=== PATIENT | female | born 2000 ===

== ENCOUNTER 2019-10-29 06:24 | Inpatient (IN) ==
[2019-10-29] MEDS ORDERED: ONDANSETRON 4 MG/2 ML VIAL IV PRN ×2 (06:33→16:13)
[2019-10-29] MEDS ORDERED: MEPERIDINE 50 MG/1 ML VIAL IV PRN (06:33)
[2019-10-29] MEDS ORDERED: BUTORPHANOL 2 MG/ML VIAL IV PRN (06:33)
[2019-10-29 06:59] LABS: Basophils % 0.3 % (0.0-0.8); Eosinophils # 0.1 10*3/uL (0.0-0.87); Eosinophils % 0.7 % (0.00-10.9); Hematocrit 38.5 VOL% (35.7-47.0); Hemoglobin 12.5 GM/DL (12.0-16.0); Immature Granulocytes % 1.5 %; Immature Granulocytes Absolute 0.11 #; Lymphocytes # 1.6 10*3/uL (1.4-4.0); Lymphocytes % 21.7 % (21.3-54.2); Mean Corpuscular HGB Conc 32.5 GM/DL (32-36); Mean Corpuscular Volume 97.5 FL (87-102); Mean Platelet Volume 8.8 FL (9.6-12.0); Monocytes % 8.2 % (1.7-12.7); Neutrophils % 67.6 % (38.7-73.9); Platelet Count 184 T/CUMM (130-400); Red Blood Count 3.95 MC/CUMM (3.8-5.5); Red Cell Distribution Width 13.2 % (9.3-17.3); White Blood Count 7.4 T/CUMM (4-12)
[2019-10-29] MEDS ORDERED: LACTATED RINGERS 1,000 ML IV SCH (07:00)
[2019-10-29] MEDS ORDERED: OXYTOCIN/LR 20 UNIT/1,000 ML BAG IV SCH (07:00)
[2019-10-29 07:30] LABS: Albumin 2.9 G/DL (3.4-5.0); Bilirubin,Total 0.6 MG/DL (0.2-1.0); Calcium 8.5 MG/DL (8.5-10.1); Osmolality,Calculated 271.8 MOS/KG (273-304); Total Protein 7.2 G/DL (6.4-8.3)
[2019-10-29] MEDS ORDERED: CITRIC ACID/SODIUM CITRATE 30 ML UDCUP PO ONE (08:45)
[2019-10-29] MEDS ORDERED: ePHEDrine 50 MG/ML AMP IV PRN (08:45)
[2019-10-29] MEDS ORDERED: diphenhydrAMINE 50 MG/1 ML VIAL IV PRN ×2 (08:45)
[2019-10-29] MEDS ORDERED: FAMOTIDINE 20 MG/2 ML VIAL IV ONE (08:45)
[2019-10-29] MEDS ORDERED: NALOXONE 0.4 MG/ML VIAL IV PRN (08:45)
[2019-10-29] MEDS ORDERED: LACTATED RINGERS 1,000 ML IV ONE (08:45)
[2019-10-29] MEDS ORDERED: fentaNYL 2 MCG/ROPIV 0.2% EPID 100 ML EPIDURAL SCH (09:00)
[2019-10-29 13:05] LABS: Apearance,Urine CLEAR (Clear); Bilirubin,Urine Negative (Negative); Blood, Urine Negative (Negative); Glucose,Urine (UA) Negative (Negative); Ketones,Urine Negative (Negative); Nitrite,Urine Negative (Negative); Protein,Urine Negative; RBC,Urine <1 /HPF (0-4); Squamous Epithelial Cell,Urine Occasional /HPF (0-10); Urine Color Colorless (Yellow); Urine Specific Gravity 1.005 (1.001-1.035); Urine Urobilinogen < 2.0 EU/DL (0.2-1.0); WBC,Urine 1 /HPF (0-6)
[2019-10-29] MEDS ORDERED: METHYLERGONOVINE 0.2 MG/1 ML AMP ONE (13:30)
[2019-10-29] MEDS ORDERED: miSOPROStoL 200 MCG TABLET ONE (13:30)
[2019-10-29] MEDS ORDERED: METHYLERGONOVINE 0.2 MG/1 ML AMP IM ONE (15:44)
[2019-10-29] MEDS ORDERED: BISACODYL 10 MG SUPP RECTAL PRN (16:13)
[2019-10-29] MEDS ORDERED: WITCH HAZEL PADS 100/JAR TOP PRN (16:13)
[2019-10-29] MEDS ORDERED: RHO(D) IMMUNE GLOBULIN 300 MCG SYRINGE IM ONE (16:13)
[2019-10-29] MEDS ORDERED: HYDROCORTISONE 2.5% RECTAL CREAM 30 GM TUBE TOP PRN (16:13)
[2019-10-29] MEDS ORDERED: ACETAMINOPHEN 325 MG TABLET PO PRN (16:13)
[2019-10-29] MEDS ORDERED: OXYTOCIN/LR 20 UNIT/1,000 ML BAG IV ONE (16:13)
[2019-10-29] MEDS ORDERED: oxyCODONE/ACETAMINOPHEN 5-325 MG TABLET PO PRN (16:13)
[2019-10-29] MEDS ORDERED: MEASLES/MUMPS/RUBELLA VACCINE 0.5 ML VIAL SUBCUT ONE (16:13)
[2019-10-29] MEDS ORDERED: BENZOCAINE 20%/MENTHOL 0.5% SPRAY 56 GM CAN TOP PRN (16:13)
[2019-10-29] MEDS ORDERED: LANOLIN 50% CREAM 0.3 OZ TUBE TOP PRN (16:13)
[2019-10-29] MEDS ORDERED: DIPH/TET/ACEL PERT BOOSTER VACCINE 0.5 ML VIAL IM ONE (16:13)
[2019-10-29 16:35] LABS: Cord Venous Blood HCO3 24.3 MMOL/L; Cord Venous Blood PCO2 38.9 MMHG
[2019-10-29] MEDS: IBUPROFEN 800 MG TABLET PO PRN (21:29)
[2019-10-29] MEDS: DOCUSATE SODIUM 100 MG CAPSULE PO SCH (21:29)
[2019-10-29] MEDS: TRIAMCINOLONE 0.1% CREAM 15 GM TUBE TOP SCH (21:37)
[2019-10-29] MEDS: oxyCODONE/ACETAMINOPHEN 5-325 MG TABLET PO PRN (23:26)
[2019-10-30 06:45] LABS: Basophils % 0.3 % (0.0-0.8); Eosinophils # 0.1 10*3/uL (0.0-0.87); Eosinophils % 1.1 % (0.00-10.9); Hematocrit 33.2 VOL% (35.7-47.0); Lymphocytes # 1.7 10*3/uL (1.4-4.0); Lymphocytes % 17.6 % (21.3-54.2); Mean Corpuscular HGB Conc 33.1 GM/DL (32-36); Mean Corpuscular Volume 96.8 FL (87-102); Mean Platelet Volume 9.1 FL (9.6-12.0); Monocytes % 7.9 % (1.7-12.7); Neutrophils % 72.1 % (38.7-73.9); Platelet Count 174 T/CUMM (130-400); Red Blood Count 3.43 MC/CUMM (3.8-5.5); Red Cell Distribution Width 13.3 % (9.3-17.3); White Blood Count 9.7 T/CUMM (4-12)
[2019-10-30] MEDS: DOCUSATE SODIUM 100 MG CAPSULE PO SCH ×2 (08:58→21:11)
[2019-10-30] MEDS: TRIAMCINOLONE 0.1% CREAM 15 GM TUBE TOP SCH ×2 (10:02→21:11)
[2019-10-30] MEDS: IBUPROFEN 800 MG TABLET PO PRN (15:36)
[2019-10-30] MEDS: oxyCODONE/ACETAMINOPHEN 5-325 MG TABLET PO PRN (15:36)
[2019-10-31] MEDS: IBUPROFEN 800 MG TABLET PO PRN ×2 (00:52→11:44)
[2019-10-31] MEDS: oxyCODONE/ACETAMINOPHEN 5-325 MG TABLET PO PRN ×2 (00:52→11:44)
[2019-10-31] MEDS: DOCUSATE SODIUM 100 MG CAPSULE PO SCH (09:35)
[2019-10-31 11:27] VITALS: BP 118/79
== END 2019-10-31 14:15 | disposition home or self-care (01) | DRG 807 ==
LOC: N.LDOUT 06:24 → N.LD 06:26 → N.OB 20:45
PROVIDERS: ADMIT Obstetrics & Gynecology; ATTEND Obstetrics & Gynecology

== ENCOUNTER 2021-12-07 11:27 | Inpatient (IN) ==
[2021-12-07] MEDS ORDERED: METHYLERGONOVINE 0.2 MG/1 ML AMP IM PRN (11:51)
[2021-12-07] MEDS ORDERED: ONDANSETRON 4 MG/2 ML VIAL IV PRN (11:51)
[2021-12-07] MEDS ORDERED: TRANEXAMIC ACID 1,000 MG in SODIUM CHLORIDE 0.9% 100 ML IV PRN ×2 (11:51→12:30)
[2021-12-07] MEDS ORDERED: OXYTOCIN/LR 20 UNIT/1,000 ML BAG IV ONE ×2 (11:51→22:20)
[2021-12-07] MEDS ORDERED: miSOPROStoL 200 MCG TABLET RECTAL PRN (11:51)
[2021-12-07] MEDS ORDERED: CARBOPROST TROMETHAMINE 250 MCG/ML AMP IM PRN (11:51)
[2021-12-07] MEDS ORDERED: CITRIC ACID/SODIUM CITRATE 30 ML UDCUP PO ONE (11:55)
[2021-12-07] MEDS ORDERED: LACTATED RINGERS 1,000 ML IV ONE (11:55)
[2021-12-07] MEDS ORDERED: diphenhydrAMINE 50 MG/1 ML VIAL IV PRN ×2 (11:55)
[2021-12-07] MEDS ORDERED: PROMETHAZINE 25 MG/1 ML VIAL IM ONE (11:55)
[2021-12-07] MEDS ORDERED: NALOXONE 0.4 MG/ML VIAL IV PRN (11:55)
[2021-12-07] MEDS ORDERED: FAMOTIDINE 20 MG/2 ML VIAL IV ONE (11:55)
[2021-12-07] MEDS ORDERED: ePHEDrine 50 MG/ML VIAL IV PRN (11:55)
[2021-12-07] MEDS ORDERED: OXYTOCIN/LR 20 UNIT/1,000 ML BAG IV SCH (12:00)
[2021-12-07] MEDS ORDERED: fentaNYL 2 MCG/ROPIV 0.2% EPID 100 ML EPIDURAL SCH (12:00)
[2021-12-07] MEDS: LACTATED RINGERS 1,000 ML IV SCH ×2 (12:06→13:00)
[2021-12-07 12:41] LABS: Basophils % 0.3 % (0.0-0.8); Eosinophils # 0.1 10*3/uL (0.0-0.87); Eosinophils % 0.7 % (0.00-10.9); Hematocrit 34.6 VOL% (35.7-47.0); Hemoglobin 11.5 GM/DL (12.0-16.0); Immature Granulocytes Absolute 0.07 #; Lymphocytes # 1.4 10*3/uL (1.4-4.0); Lymphocytes % 19.7 % (21.3-54.2); Mean Corpuscular HGB Conc 33.2 GM/DL (32-36); Mean Corpuscular Volume 91.1 FL (87-102); Mean Platelet Volume 9.3 FL (9.6-12.0); Monocytes # 0.5 10*3/uL (0.11-0.8); Monocytes % 6.9 % (1.7-12.7); Neutrophils % 71.4 % (38.7-73.9); Platelet Count 215 T/CUMM (130-400); Red Cell Distribution Width 14.4 % (9.3-17.3)
[2021-12-07] MEDS ORDERED: OXYTOCIN/LR 30 UNIT/1,000 ML BAG IV ONE (14:36)
[2021-12-07 17:29] LABS: Cord Venous Blood HCO3 21.4 MMOL/L; Cord Venous Blood PCO2 45.3 MMHG; Cord Venous Blood PO2 35.2
[2021-12-07 17:33] LABS: RBC,Urine 12 /HPF (0-4); Squamous Epithelial Cell,Urine Occasional /HPF (0-10)
[2021-12-07 17:34] LABS: Urine Appearance Clear (Clear); Urine Color Yellow (Yellow); Urine Specific Gravity 1.015 (1.001-1.035)
[2021-12-07 17:35] LABS: Bilirubin,Urine Negative (Negative); Blood, Urine Negative (Negative); Glucose,Urine (UA) Negative (Negative); Ketones,Urine 15 mg/dL (Negative); Nitrite,Urine Negative (Negative); Protein,Urine Negative (Negative)
[2021-12-07 17:41] LABS: Barbiturates Screen,Urine Negative (Negative); Benzodiazepines Screen,Urine Negative (Negative); Cannabinoid Screen,Urine Negative (Negative); Opiate Screen,Urine Negative (Negative); Phencyclidine Screen,Urine Negative (Negative)
[2021-12-07] MEDS ORDERED: ACETAMINOPHEN 325 MG TABLET PO PRN (22:20)
[2021-12-07] MEDS ORDERED: RHO(D) IMMUNE GLOBULIN 300 MCG SYRINGE IM ONE (22:20)
[2021-12-07] MEDS ORDERED: BISACODYL 10 MG SUPP RECTAL PRN (22:20)
[2021-12-07] MEDS ORDERED: BENZOCAINE 20%/MENTHOL 0.5% SPRAY 56 GM CAN TOP PRN (22:20)
[2021-12-07] MEDS ORDERED: oxyCODONE/ACETAMINOPHEN 5-325 MG TABLET PO PRN ×2 (22:20)
[2021-12-07] MEDS ORDERED: MEASLES/MUMPS/RUBELLA VACCINE 0.5 ML VIAL SUBCUT ONE (22:20)
[2021-12-07] MEDS ORDERED: WITCH HAZEL PADS 100/JAR TOP PRN (22:20)
[2021-12-07] MEDS ORDERED: HYDROCORTISONE 2.5% RECTAL CREAM 30 GM TUBE TOP PRN (22:20)
[2021-12-07] MEDS ORDERED: LANOLIN 50% CREAM 0.3 OZ TUBE TOP PRN (22:20)
[2021-12-07] MEDS ORDERED: DIPH/TET/ACEL PERT BOOSTER VACCINE 0.5 ML VIAL IM ONE (22:20)
[2021-12-07] MEDS: DOCUSATE SODIUM 100 MG CAPSULE PO SCH (22:29)
[2021-12-07] MEDS: IBUPROFEN 800 MG TABLET PO PRN (22:29)
[2021-12-08 05:39] LABS: Basophils % 0.2 % (0.0-0.8); Eosinophils # 0.1 10*3/uL (0.0-0.87); Eosinophils % 0.7 % (0.00-10.9); Hematocrit 33.5 VOL% (35.7-47.0); Hemoglobin 10.9 GM/DL (12.0-16.0); Immature Granulocytes % 0.6 %; Immature Granulocytes Absolute 0.07 #; Lymphocytes # 1.7 10*3/uL (1.4-4.0); Lymphocytes % 14.3 % (21.3-54.2); Mean Corpuscular HGB Conc 32.5 GM/DL (32-36); Mean Platelet Volume 9.5 FL (9.6-12.0); Monocytes # 0.7 10*3/uL (0.11-0.8); Monocytes % 5.7 % (1.7-12.7); Neutrophils % 78.5 % (38.7-73.9); Platelet Count 181 T/CUMM (130-400); Red Blood Count 3.64 MC/CUMM (3.8-5.5); Red Cell Distribution Width 14.3 % (9.3-17.3); White Blood Count 12.1 T/CUMM (4-12)
[2021-12-08] MEDS: DOCUSATE SODIUM 100 MG CAPSULE PO SCH ×2 (10:20→20:57)
[2021-12-08] MEDS: IBUPROFEN 800 MG TABLET PO PRN (14:30)
[2021-12-09] MEDS: IBUPROFEN 800 MG TABLET PO PRN (04:14)
[2021-12-09 09:54] VITALS: BP 103/57
== END 2021-12-09 13:00 | disposition home or self-care (01) | DRG 807 ==
LOC: N.LDOUT 11:27 → N.LD 11:37 → N.OB 22:10
PROVIDERS: ADMIT Obstetrics & Gynecology; ATTEND Obstetrics & Gynecology